=== PATIENT | female | born 1930 | race American Indian/Alaskan Native ===

== ENCOUNTER 2019-05-08 10:41 | Day surgery (SDC) | payer MEDICARE ==
[~2019-05-08 10:41] MED LIST: SODIUM CHLORIDE 0.9% 1000 ML 1,000 ML IV SCH
--- NOTE | 2019-05-08 11:17 | Anesthesia Consultation ---
Anesthesia Consult and Med Hx Date of service: 05/08/19 - Airway Anesthetic Teeth Evaluation: Dentures ROM Head & Neck: Adequate Mental/Hyoid Distance: Adequate Mallampati Class: Class III Intubation Access Assessment: Probably Good - Pre-Operative Health Status ASA Pre-Surgery Classification: ASA3 Proposed Anesthetic Plan: MAC - Pulmonary Hx Smoking: No Hx Asthma: No Hx Respiratory Symptoms: No SOB: No COPD: No Home Oxygen Therapy: No Hx Pneumonia: No Hx Sleep Apnea: Yes - Cardiovascular System Hx Hypertension: Yes Hx Coronary Artery Disease: No Hx Heart Attack/AMI: No Hx Angina: No Hx Percutaneous Transluminal Coronary Angioplasty (PTCA): No Hx Cardia Arrhythmia: No Hx Pacemaker: No Hx Internal Defibrillator: No Hx Valvular Heart Disease: No Hx Heart Murmur: No Hx Peripheral Vascular Disease: No - Central Nervous System Hx Neuromuscular Disorder: No Hx Seizures: No CVA: No Hx Back Pain: Yes Hx Psychiatric Problems: Yes (anexity) - Gastrointestinal Hx Ulcer: Yes (peptic) Hx Gastroesophageal Reflux Disease: No - Endocrine Hx Renal Disease: No Hx End Stage Renal Disease: No Hx Cirrhosis: No Hx Liver Disease: No Hx Insulin Dependent Diabetes: No Hx Non-Insulin Dependent Diabetes: No Hx Thyroid Disease: No Hx Hypothyroidism: No Hx Hyperthyroidism: No - Hematic Hx Anemia: No - Other Systems Hx Alcohol Use: No Hx Substance Use: No Hx Cancer: No Hx Obesity: Yes
--- NOTE | 2019-05-08 11:18 | Anesthesia Day of Surgery ---
Anesthesia Day of Surgery - Day of Surgery Patient Examined: Yes Patient H&P Reviewed: Yes Patient is NPO: Yes Beta Blockers: No
[2019-05-08] MEDS ORDERED: LIDOCAINE MPF (2%) 20 MG/1 ML VIAL 5 ML ONE (11:30)
[2019-05-08] MEDS ORDERED: PROPOFOL 200 MG/20 ML VIAL IV ONE (13:02)
[2019-05-08] MEDS ORDERED: WATER FOR IRRIG STERILE 250 ML BOTTLE IR ONE (13:07)
--- NOTE | 2019-05-08 13:29 | Procedure Note ---
Date of procedure: 05/08/19 Pre-op diagnosis: Abdominal Pain/Dyspepsia Post-op diagnosis: other (Mild to Moderate Erosive Esophagitis/Gastritis/Gastric Erosion/No Peptic Ulcer Disease noted) Procedure: EGD with Biopsy Anesthesia: MAC Surgeon: SHIRIN CORTES Estimated blood loss: minimal Pathology: list Specimen disposition: to lab Condition: stable Disposition: same day
[2019-05-08 15:22] VITALS: BP 146/72
--- NOTE | 2019-05-08 15:22 | Operative Report ---
PROCEDURE: Esophagogastroduodenoscopy with biopsy. INDICATIONS: An 89-year-old -[place] female who has had partial colon resection because of diverticular disease and lately has been having some abdominal pain and discomfort. She had a CT scan done last year, which was essentially unremarkable at that time. The EGD was done to make sure there was not any significant upper GI pathology present. DESCRIPTION OF PROCEDURE: Procedure was done after getting informed consent with MAC anesthesia. Instrument was passed through the hypopharynx into the esophagus, which showed [id number] distal erosive esophagitis. Biopsy was done from the distal esophagus. Stomach showed gastric erosion and gastritis, most pronounced in the antrum. Biopsy was done from the gastric antrum, gastric body and angular incisura. The pylorus was patent. The duodenum in the first and the second portion appeared normal. There was minimal bleeding from the biopsy sites. No complications associated with the procedure. There was no obvious peptic ulcer disease noted. ASSESSMENT: Abdominal pain, [id number] distal erosive esophagitis, gastric erosion, gastritis involving the antrum. No peptic ulcer disease noted. Patent pylorus. PLAN: To treat the patient with PPI, p.r.n. dose of Bentyl. We encouraged the patient to take probiotic, the patient to avoid aspirin and aspirin-related products for the next 4 days and follow up in the office in 1-2 weeks' time. The procedure was done in the GI lab with assistance of the GI lab team, which included Katiana LYNN and Jeffy stover and with assistance of Anesthesia. JOB# [id number] KAREN/CHINYERE
== END 2019-05-08 10:42 | disposition home or self-care (01) ==
LOC: GIO 10:41
DX: R10.9 Unspecified abdominal pain (principal); R14.0 Abdominal distension (gaseous); K20.9 Esophagitis, unspecified; K29.50 Unspecified chronic gastritis without bleeding; I10 Essential (primary) hypertension; E66.9 Obesity, unspecified; F41.9 Anxiety disorder, unspecified; R10.13 Epigastric pain; K27.9 Peptic ulcer, site unspecified, unspecified as acute or chronic, without hemorrhage or perforation; Z79.899 Other long term (current) drug therapy; Z68.32 Body mass index [BMI] 32.0-32.9, adult; Z98.890 Other specified postprocedural states
CPT/HCPCS: 43239; 88305; 88342; J2704; J7030